=== PATIENT | male | born 1965 | race Caucasian/White ===

== ENCOUNTER 2016-10-31 16:34 | Emergency (ER) | payer BC ==
[~2016-10-31] VITALS: Ht 175.3 cm; Wt 68.1 kg
[~2016-10-31 16:34] MED LIST: ALBUTEROL2.5 MG/3 M; ALBUTEROL2.5 MG/3 M OR; AMOX/K CLAV875 M1 PO; CIPRO500 MG OR; DOXYCYCL HYC100 MG PO; DUONEB IN; FLOVENT DISK100 MCG IN; HYDROXYZ HCL25 MG PO; Levaquin PO; MEDDOSEPAK OR; MOTRIN800 MG OR; NAPROSYN500 MG PO; NO HOME MEDS; PREDNISONE20 MG PO; PROVENTIL HFA IN; PROVENTIL INH17 GM IN; ROBITUSS11 OR; THERAFL OR; VOSOL2 % OT
[2016-10-31] MEDS ORDERED: MOTRIN800 MG PO (17:02)
[2016-10-31] MEDS ORDERED: FLEXERIL PO (17:02)
[2016-10-31] MEDS ORDERED: LORTAB 5-325 MG1 TAB PO (17:02)
[2016-10-31 17:40] VITALS: BP 109/72
== END 2016-10-31 17:40 | disposition home or self-care (01) | DRG 563 ==
LOC: ED 16:34
DX: S39.012A Strain of muscle, fascia and tendon of lower back, initial encounter (principal); J44.9 Chronic obstructive pulmonary disease, unspecified; F17.210 Nicotine dependence, cigarettes, uncomplicated; X50.9XXA Other and unspecified overexertion or strenuous movements or postures, initial encounter; Y92.009 Unspecified place in unspecified non-institutional (private) residence as the place of occurrence of the external cause

== ENCOUNTER 2019-05-04 18:14 | Emergency (ER) | payer SELFPAY ==
[~2019-05-04] VITALS: Ht 172.7 cm; Wt 65.4 kg
[~2019-05-04 18:14] MED LIST changes: +ALBUTEROL SUL0.083 % IN; +FLEXERIL PO; +FLOVENT DI50 MCG/BLI; +LORTAB 5-325 MG1 TAB PO; +MOTRIN800 MG PO
[2019-05-04] MEDS ORDERED: PROAIR HFA108 MCG/AC IN (19:02)
[2019-05-04 19:30] LABS: HEMATOCRIT 45.6 % (39.0-50.0); HEMOGLOBIN 15.5 g/dl (14.0-18.0); IMMATURE GRANULOCYTES 0.6 % (0.0-5.0); MEAN CELL VOLUME 86.4 fL CALC (80.0-100.0); MEAN CORPUSCULAR HGB 29.4 pG CALC (26.0-32.0); NEUT# 12.65 thou/uL (1.82-7.42); RED BLOOD COUNT 5.28 mill/uL (4.70-6.10); RED CELL DISTRI WIDTH 12.6 % (11.5-15.5)
[2019-05-04] MEDS ORDERED: TAM75CAP PO (20:40)
[2019-05-04] MEDS ORDERED: BIAXIN500 MG PO (20:40)
[2019-05-04 21:15] VITALS: BP 106/67
== END 2019-05-04 21:15 | disposition home or self-care (01) | DRG 194 ==
LOC: ED 18:14
PROVIDERS: Family Medicine
DX: J11.00 Influenza due to unidentified influenza virus with unspecified type of pneumonia (principal); J44.1 Chronic obstructive pulmonary disease with (acute) exacerbation; F17.200 Nicotine dependence, unspecified, uncomplicated